=== PATIENT | male | born 1960 | race African-American/Black ===

== ENCOUNTER → 2016-09-30 | Outpatient (REF) | payer OTHER ==
[~2016-09-30] MED LIST: ACCUKIT10 XX; ACURKIT XX; ADVO1MIS3 XX; ASPI1TAB PO; CARV6.25 PO; DICL50TA2 PO; DRIS50002 PO; FENO145T PO; FLON1SPR; HYDR25TAB PO; ICYOIN EXT; INSUDET SC; INSUHUMDS SC; LISI10TA4 PO; LOVA1CAP17 PO; METF500T PO; NIGHLIQ PO; PERC5TAB6 PO; SUPECAP24 PO; TRAM50TA2 PO; VITA10002 PO; VITA100037 PO; VITA500S3 SL; [UNRECOGNIZED DRUG - CODE] MT; [UNRECOGNIZED DRUG - CODE] XX
== END ==
LOC: M LAB REF 12:23
PROVIDERS: ATTEND Family Medicine
DX: Z01.818 Encounter for other preprocedural examination (principal); M16.11 Unilateral primary osteoarthritis, right hip; M25.559 Pain in unspecified hip; D63.8 Anemia in other chronic diseases classified elsewhere; E11.9 Type 2 diabetes mellitus without complications

== ENCOUNTER → 2016-09-30 | Outpatient (REF) | payer OTHER | LOC: M LAB REF 12:19 | PROVIDERS: ATTEND Internal Medicine Medical Oncology | DX: R79.0 Abnormal level of blood mineral (principal) ==

== ENCOUNTER → 2017-04-11 | Outpatient (REF) | payer OTHER ==
[~2017-04-11] MED LIST changes: +ALCOPAD11 XX; -METF500T PO; +METF500T13 PO; +PERC5TAB12 PO; -PERC5TAB6 PO; -VITA100037 PO; +VITA100067 PO; +[UNRECOGNIZED DRUG - CODE] MT; -[UNRECOGNIZED DRUG - CODE] MT; -[UNRECOGNIZED DRUG - CODE] XX
[2017-04-11 14:18] LABS: PERCENT SATURATION 26.5 % (19.7-37.4)
== END ==
LOC: M LAB REF 13:30
PROVIDERS: ATTEND Internal Medicine Medical Oncology
DX: E83.119 Hemochromatosis, unspecified (principal)

== ENCOUNTER → 2017-11-07 | Day surgery (SDC) | payer OTHER ==
[~2017-11-07] MED LIST changes: -ACCUKIT10 XX; -ACURKIT XX; -ADVO1MIS3 XX; -ALCOPAD11 XX; -ASPI1TAB PO; -CARV6.25 PO; -DICL50TA2 PO; -DRIS50002 PO; -FENO145T PO; -FLON1SPR; -HYDR25TAB PO; -ICYOIN EXT; -INSUDET SC; -INSUHUMDS SC; +LIDOCAINE 2% INJ 100 MG/5 ML SDV (FOR ANES.) As Ordered; -LISI10TA4 PO; -LOVA1CAP17 PO; -METF500T13 PO; -NIGHLIQ PO; -PERC5TAB12 PO; +PROPOFOL 200 MG/20 ML VIAL As Ordered; -SUPECAP24 PO; -TRAM50TA2 PO; -VITA10002 PO; -VITA100067 PO; -VITA500S3 SL; -[UNRECOGNIZED DRUG - CODE] MT
[2017-11-07] MEDS: NS 1,000 ML IV (06:45)
== END | disposition home or self-care (01) ==
LOC: M OPP 06:41
DX: Z12.11 Encounter for screening for malignant neoplasm of colon (principal); Z86.010 Personal history of colon polyps; D12.3 Benign neoplasm of transverse colon; K57.30 Diverticulosis of large intestine without perforation or abscess without bleeding; K64.8 Other hemorrhoids; I10 Essential (primary) hypertension; E78.5 Hyperlipidemia, unspecified; R93.1 Abnormal findings on diagnostic imaging of heart and coronary circulation; E11.9 Type 2 diabetes mellitus without complications; M19.90 Unspecified osteoarthritis, unspecified site; F41.9 Anxiety disorder, unspecified; G47.8 Other sleep disorders; G47.30 Sleep apnea, unspecified; R06.83 Snoring; Z96.643 Presence of artificial hip joint, bilateral; Z79.82 Long term (current) use of aspirin; Z79.899 Other long term (current) drug therapy; Z79.84 Long term (current) use of oral hypoglycemic drugs; Z87.891 Personal history of nicotine dependence
CPT/HCPCS: 45385

== ENCOUNTER → 2018-02-07 | Outpatient (REF) | payer OTHER ==
[2018-02-07 18:58] LABS: FERRITIN 240 NG/ML (26-388); IRON (FE) 112 UG/DL (65-175); PERCENT SATURATION 35.2 % (19.7-50.0); TOTAL IRON BINDING CAPACITY 318 UG/DL (250-450)
== END ==
LOC: M LAB REF 17:33
DX: R79.89 Other specified abnormal findings of blood chemistry (principal)
CPT/HCPCS: 83550

== ENCOUNTER 2018-08-31 10:06 | Day surgery (SDC) | payer MEDICARE, OTHER ==
[~2018-08-31] VITALS: Ht 172.7 cm; Wt 82.1 kg
[~2018-08-31 10:06] MED LIST changes: +ACCUKIT10 XX; +ACURKIT XX; +ADVO1MIS3 XX; +ALCOPAD11 XX; +ALPH50CA2 PO; +ASPI1TAB PO; +CARV6.25 PO; +DICL50TA2 PO; +DRIS50003 PO; +FENO145T13 PO; +FLON1SPR; +HYDR25TAB PO; +ICYOIN EXT; +INSUDET SC; +INSUHUMDS SC; -LIDOCAINE 2% INJ 100 MG/5 ML SDV (FOR ANES.) As Ordered; +LISI10TA4 PO; +LISI20TA PO; +LOVA1CAP17 PO; +METF10004 PO; +METF500T13 PO; +MULT1TAB10 PO; +NIGHLIQ PO; +PERC5TAB12 PO; -PROPOFOL 200 MG/20 ML VIAL As Ordered; +ROSU20TA4 PO; +ROSU40TA3 PO; +SUPECAP24 PO; +TRAM50TA2 PO; +VITA10002 PO; +VITA100067 PO; +VITA500S3 SL; +[UNRECOGNIZED DRUG - CODE] MT
[2018-08-31] MEDS ORDERED: NS 1,000 ML IV ONE (10:15)
[2018-08-31] MEDS ORDERED: PROPOFOL 200 MG/20 ML VIAL As Ordered ONE (11:43)
[2018-08-31] MEDS ORDERED: LIDOCAINE 2% INJ 100 MG/5 ML SDV (FOR ANES.) As Ordered ONE (11:43)
--- NOTE | 2018-08-31 11:52 | ROOR ---
Patient Name: Mt Morgan Procedure Date: 08/31/2018 11:27 AM Date of : 1960 Age: 57 Room: [facility] Gender: Male Note Status: Finalized Procedure: Upper GI endoscopy Indications: Epigastric abdominal pain Providers: Michael MOLINA MD Referring MD: GLADIS GRIFFITH MD Requesting Provider: Medicines: Monitored Anesthesia Care Complications: No immediate complications. Procedure: Pre-Anesthesia Assessment: - The heart rate, respiratory rate, oxygen saturations, blood pressure, adequacy of pulmonary ventilation, and response to care were monitored throughout the procedure. The Endoscope was introduced through the mouth, and advanced to the third part of duodenum. The upper GI endoscopy was accomplished without difficulty. The patient tolerated the procedure well. Findings: Scattered moderate inflammation characterized by erosions, erythema and granularity was found in the gastric antrum. Biopsies were taken with a cold forceps for Helicobacter pylori testing. Incidental findings: Large volume/compliant stomach sometimes seen in gastroparesis. The examined duodenum was normal. The examined esophagus was normal. Impression: - Erosive Gastritis (with a few superficial erosions/shallow ulcerations). Biopsied. - Normal examined duodenum. - Normal esophagus. Recommendation: - Use Prilosec (omeprazole) 40 mg PO daily. (script sent to your pharmacy) - Return to my office at the next available appointment. - Repeat upper endoscopy in 2 months for surveillance. Diet: - Low fat diet. - Liquid/soft foods are tolerated better than solid foods. - Low fiber/well cooked vegetables are tolerated better than high fiber/fibrous foods/raw vegetables. - Avoid medications that inhibit gastric/intestinal motility such as narcotic medications. Michael Molina MD Michael MOLINA MD 08/31/2018 11:51:43 AM This report has been signed electronically. Number of Addenda: 0 Note Initiated On: 08/31/2018 11:27 AM Estimated Blood Loss: Estimated blood loss: none.
[2018-08-31 12:05] VITALS: BP 134/80
== END 2018-08-31 12:15 | disposition home or self-care (01) ==
LOC: M OPP 10:06
PROVIDERS: ATTEND Internal Medicine Gastroenterology
DX: R10.13 Epigastric pain (principal); K29.70 Gastritis, unspecified, without bleeding

== ENCOUNTER → 2018-09-23 | Outpatient (CLI) | payer MEDICARE, OTHER ==
[2018-09-23 11:46] LABS: MALB URINE SIEMENS 39.1 MG/L; MAU/CREAT RATIO 17.3 MCG/MG (0.0-30.0)
[2018-09-23 11:50] LABS: ALT/SGPT 51 U/L (12-78); BILIRUBIN,TOTAL 0.4 MG/DL (0.2-1.0); BLOOD UREA NITROGEN 5 MG/DL (7-18); CALCIUM LEVEL 9.2 MG/DL (8.5-10.1); CARBON DIOXIDE LEVEL 30 MEQ/L (21-32); CHLORIDE LEVEL 99 MEQ/L (98-107); CHOLESTEROL LEVEL 96 MG/DL (<200); CHOLESTEROL RISK RATIO 1.882 (<5); CREATININE FOR GFR 1.25 MG/DL (0.70-1.30); GLOMERULAR FILTRATION RATE > 60.0 (>56); GLUCOSE, FASTING 129 MG/DL (70-100); HDL CHOLESTEROL 51 MG/DL (>40); LDL CHOLESTEROL 20 MG/DL (<100); NON-HDL-C 45 MG/DL; POTASSIUM SERUM 4.7 MEQ/L (3.5-5.1); SODIUM LEVEL 136 MEQ/L (136-145); TOTAL PROTEIN 7.8 GM/DL (6.4-8.2); TRIGLYCERIDES LEVEL 125 MG/DL (<150)
== END ==
LOC: M LAB 10:24
PROVIDERS: ATTEND Nurse Practitioner Family
DX: E78.2 Mixed hyperlipidemia (principal); E11.40 Type 2 diabetes mellitus with diabetic neuropathy, unspecified

== ENCOUNTER 2018-11-16 13:35 | Day surgery (SDC) | payer MEDICARE, OTHER ==
[~2018-11-16] VITALS: Ht 172.7 cm; Wt 85.3 kg
[~2018-11-16 13:35] MED LIST changes: +LIDOCAINE 2% INJ 100 MG/5 ML SDV (FOR ANES.) As Ordered ONE; +PROPOFOL 500 MG/50 ML VIAL As Ordered ONE
[2018-11-16] MEDS ORDERED: NS 1,000 ML IV ONE (14:00)
[2018-11-16] MEDS ORDERED: PROPOFOL 200 MG/20 ML VIAL As Ordered ONE ×2 (14:31→15:12)
[2018-11-16] MEDS ORDERED: LIDOCAINE 2% INJ 100 MG/5 ML SDV (FOR ANES.) As Ordered ONE (14:31)
--- NOTE | 2018-11-16 15:22 | ROOR ---
Patient Name: Mt Morgan Procedure Date: 11/16/2018 3:01 PM Date of : 1960 Age: 57 Room: [facility] Gender: Male Note Status: Finalized Procedure: Upper GI endoscopy Indications: Heartburn, Suspected gastroparesis Providers: Michael MOLINA MD Referring MD: GLADIS GRIFFITH MD Requesting Provider: Medicines: Monitored Anesthesia Care Complications: No immediate complications. Procedure: Pre-Anesthesia Assessment: - The heart rate, respiratory rate, oxygen saturations, blood pressure, adequacy of pulmonary ventilation, and response to care were monitored throughout the procedure. The Endoscope was introduced through the mouth, and advanced to the second part of duodenum. The upper GI endoscopy was accomplished without difficulty. The patient tolerated the procedure well. Findings: The examined esophagus was normal. A mild deformity was found in the gastric antrum. (large volume/compliant stomach) The entire examined stomach was normal. The examined duodenum was normal. Impression: - Normal esophagus. - Normal stomach with mild deformity in the gastric antrum. (likely related scarring from previous ulcer disease)- - Normal examined duodenum. - No specimens collected. Recommendation: - Continue present medications. - Gastroparesis diet: - Eat smaller, more frequent meals throughout the day. - Low fat diet. - Liquid/soft foods are tolerated better than solid foods. - Low fiber/well cooked vegetables are tolerated better than high fiber/fibrous foods/raw vegetables. - Avoid medications that inhibit gastric/intestinal motility such as narcotic medications. Mcihael Molina MD Michael MOLINA MD 11/16/2018 3:22:40 PM This report has been signed electronically. Number of Addenda: 0 Note Initiated On: 11/16/2018 3:01 PM Estimated Blood Loss: Estimated blood loss: none.
[2018-11-16 15:45] VITALS: BP 119/88
== END 2018-11-16 15:59 | disposition home or self-care (01) ==
LOC: M OPP 13:35
PROVIDERS: ATTEND Internal Medicine Gastroenterology
DX: K31.89 Other diseases of stomach and duodenum (principal); R12 Heartburn